=== PATIENT | male | born 1950 | race Caucasian/White ===

== ENCOUNTER 2025-01-17 14:14 | Emergency (ER) | payer OTHER, SELFPAY ==
[2025-01-17] VITALS (27 sets, daily range): BP systolic 86–114; BP diastolic 58–82; BMI 34.4
[2025-01-17 14:38] LABS: Hematocrit 48.2 % (39.0-52.0); Hemoglobin 17.0 g/dL (13.0-18.0); Mean Corp Hgb Conc. 35.3 g/dL (33.0-37.0); Mean Corpuscular Volume 93.4 fL (80.0-94.0); Nucleated Red Blood Cells % 0 % (-); Platelet Count 233 10^3/uL (130-400); Red Cell Dist. Width 14.0 % (11.5-14.5)
--- NOTE | 2025-01-17 14:41 | ED.GENMED ---
History of Present Illness
<Armand Burk PA-C - Last Filed: 01/17/25 19:11>
General
Chief Complaint: Cardiac Symptoms
Time Seen by Provider: 01/17/25 14:35
History of Present Illness
History of Present Illness:
74-year-old male with history of paroxysmal A-fib presents to the emergency department for evaluation of persistent A-fib for the past 3 days. He took an extra dose of his propafenone without alleviation of symptoms. He felt profoundly short of
breath with exertion this morning prompting him to come to the ED as he noted his heart rates were in excess of 140-150. He currently feels improved but knows that he is still in A-fib. He denies any chest pain at this point. He has been
compliant with his Eliquis
Past History
<Armand Burk PA-C - Last Filed: 01/17/25 19:11>
Past History
ED Past Medical History: Arrthythmia (Paroxysmal atrial fibrillation)
Social History
Alcohol: Daily
Review of Systems
<GRANT Hunter Last Filed: 01/17/25 19:11>
Review of Systems
Allergies reviewed?: Yes
All Other Systems: ROS reviewed and negative except as documented in HPI and ROS
Phy Exam
<GRANT Hunter Last Filed: 01/17/25 19:11>
Physical Exam
Physical Exam:
GEN: Well appearing, NAD, WDWN
HEENT: Oral mucosa moist, no scleral icterus
Cardiac: Tachycardic, irregular
Lung: No respiratory distress, no tachypnea
MSK: No gross deformity or injuries
Skin: Good color, no pallor or jaundice, no rashes
Neuro: AO x3, moves all extremities freely
Psych: Calm, cooperative
Course
<Armand Burk PA-C - Last Filed: 01/17/25 19:11>
Orders/Labs/Results
Orders:
Orders
01/17/25 14:15
Electrocardiogram (*1) Urgent
Reason for Study: Tachycardia
EKG- Treatment ONCE
01/17/25 14:32
Complete Blood Count/With Diff Urgent
Comprehensive Metabolic Panel Urgent
Magnesium Urgent
PT/INR [Prothrombin Time] Urgent
PTT Urgent
Troponin I Urgent
01/17/25 14:41
Diltiazem HCl [Cardizem] 20 mg IV NOW STA
01/17/25 14:57
0.9% Sodium Chloride 1000 ml [Nss] 1,000 ml IV BOLUS
01/17/25 15:48
Propofol [Diprivan] 20 ml .ROUTE .STK-MED
01/17/25 15:59
Electrocardiogram (*1) Urgent
Reason for Study: Atrial Fibrillation
EKG- Treatment ONCE
Abnormal Lab Results
01/17/25
14:32
WBC 11.6 H 10^3/uL
(4.8-10.8)
MCH 32.9 H pg
(27.0-31.0)
Abs Immat Gran (auto) 0.1 H 10^3/uL
(0-0.05)
Absolute Neuts (auto) 6.6 H 10^3/uL
(1.4-6.5)
Absolute Lymphs (auto) 3.6 H 10^3/uL
(1.2-3.4)
Absolute Monos (auto) 1.0 H 10^3/uL
(0.1-0.6)
Immature Gran % 0.9 H %
(0-0.5)
PT 15.3 H Sec
(11.4-14.6)
BUN 30 H mg/dl
(9-20)
Creatinine 1.4 H mg/dL
(0.7-1.3)
Glucose 129 H mg/dl
(70-99)
ALT 69 H U/L
(0-50)
01/17/25 14:32
01/17/25 14:32
Vital Signs
Initial and Last Documented VS:
Initial Vital Signs
Temp Pulse Resp BP Pulse Ox
97.4 F 155 22 99/75 96
01/17/25 14:18 01/17/25 14:18 01/17/25 14:18 01/17/25 14:18 01/17/25 14:18
Last Documented Vital Signs
Temp Pulse Resp BP Pulse Ox
98.4 F 62 20 105/66 97
01/17/25 16:27 01/17/25 17:00 01/17/25 17:00 01/17/25 16:55 01/17/25 16:55
<Lalita Haas MD - Last Filed: 01/17/25 16:07>
Orders/Labs/Results
Orders:
Orders
01/17/25 14:15
Electrocardiogram (*1) Urgent
Reason for Study: Tachycardia
EKG- Treatment ONCE
01/17/25 14:32
Complete Blood Count/With Diff Urgent
Comprehensive Metabolic Panel Urgent
Magnesium Urgent
PT/INR [Prothrombin Time] Urgent
PTT Urgent
Troponin I Urgent
01/17/25 14:41
Diltiazem HCl [Cardizem] 20 mg IV NOW STA
01/17/25 14:57
0.9% Sodium Chloride 1000 ml [Nss] 1,000 ml IV BOLUS
01/17/25 15:48
Propofol [Diprivan] 20 ml .ROUTE .STK-MED
01/17/25 15:59
Electrocardiogram (*1) Urgent
Reason for Study: Atrial Fibrillation
EKG- Treatment ONCE
Abnormal Lab Results
01/17/25
14:32
WBC 11.6 H 10^3/uL
(4.8-10.8)
MCH 32.9 H pg
(27.0-31.0)
Abs Immat Gran (auto) 0.1 H 10^3/uL
(0-0.05)
Absolute Neuts (auto) 6.6 H 10^3/uL
(1.4-6.5)
Absolute Lymphs (auto) 3.6 H 10^3/uL
(1.2-3.4)
Absolute Monos (auto) 1.0 H 10^3/uL
(0.1-0.6)
Immature Gran % 0.9 H %
(0-0.5)
PT 15.3 H Sec
(11.4-14.6)
BUN 30 H mg/dl
(9-20)
Creatinine 1.4 H mg/dL
(0.7-1.3)
Glucose 129 H mg/dl
(70-99)
ALT 69 H U/L
(0-50)
01/17/25 14:32
01/17/25 14:32
Vital Signs
Initial and Last Documented VS:
Initial Vital Signs
Temp Pulse Resp BP Pulse Ox
97.4 F 155 22 99/75 96
01/17/25 14:18 01/17/25 14:18 01/17/25 14:18 01/17/25 14:18 01/17/25 14:18
Last Documented Vital Signs
Temp Pulse Resp BP Pulse Ox
98.4 F 62 20 105/66 97
01/17/25 16:27 01/17/25 17:00 01/17/25 17:00 01/17/25 16:55 01/17/25 16:55
Procedures
<Armand Burk PA-C - Last Filed: 01/17/25 19:11>
Cardioversion
Indication:: Afib
Performed by:: Armand Burk PA-C, Lalita Haas,
Synchronized?: Yes
Energy Used: 200 joules
Number of attempts: 1
Successful?: Yes
Complications: None
ASA Risk Score: Class II
Any reaction or bad outcome to prior sedation/anesthesia?: No history of a reaction
Sedation level to be attained: moderate
Chart and allergies reviewed: Yes
Patient reassessed prior to sedation: Yes
Time out completed at (validating right patient & procedure): 15:56
History of difficult intubation: No
Airway free of obstruction: Yes
Patient has a gag reflex: Yes
Patient is able to open mouth: Yes
Patient has no dentures: Yes
Patient has no loose teeth: Yes
Medication administered by Provider during Moderate Sedation: IV Propofol (mg)
Total dose administered: 70
Time drug administered: 15:57
Start Time: 15:57
Stop Time: 16:07
<Armand Burk PA-C - Last Filed: 01/17/25 19:11>
MDM/Problems Addressed
MDM/Problems Addressed:
We achieved rate control with IV diltiazem however the patient remained in atrial flutter thus the decision was made to perform electrical cardioversion which was successful without complications. Patient will be discharged and recommended to
follow-up with his epic ambulatory analyst for further management
<Armand Burk PA-C - Last Filed: 01/17/25 19:11>
*Pulse Oximetry
SaO2: 95
Oxygen Mode of Delivery: Room air
Patient hypoxic: no
*Critical Care Note
Total Time (30-74mins, 75-104mins- exclusive of procedures): Not Applicable
ED Attending Note
<Armand Burk PA-C - Last Filed: 01/17/25 19:11>
-
Portions of this chart may have been created with voice recognition software.� Occasional wrong word or��sound alike� substitutions may have occurred due to the inherent limitations of voice recognition software.
<Lalita Haas MD - Last Filed: 01/17/25 16:07>
ED Attending Note
Patient seen and examined by attending physician: Yes
I performed the substantive portion of visit, reviewed & personally made and approve the management plan that is documented in note by myself or BRIDGER.: Yes
ED Attending Note:
Patient appears well and comfortable. Presents with A-fib with RVR. Heart sounds irregular. Patient is breathing comfortably.
Discharge Plan
Departure
Patient Disposition: Home (Routine Discharge)
Date of Disposition: 01/17/25
Time of Disposition: 16:53
Patient with high blood pressure during this ER visit?: No
Discharge Problem:
Atrial fibrillation with RVR
Instructions: Atrial fibrillation and atrial flutter - ED discharge instructions, Sedation for procedures in adults - ED discharge instructions
Prescriptions:
No Action
allopurinol 300 MG tablet
300 mg PO DAILY
coenzyme Q10 100 MG capsule
100 mg PO DAILY
lansoprazole [Prevacid] 30 MG capsule,delayed release(DR/EC)
30 mg PO DAILY
turmeric root extract 500 MG capsule
1,000 mg PO DAILY
cetirizine [Zyrtec] 10 mg Tablet
10 mg PO HS
ascorbic acid (vitamin C) [C-500] 500 mg Tablet
500 mg PO DAILY
metoprolol succinate 25 mg Tablet Extended Release 24 Hr
50 mg PO BID
magnesium 200 mg Tablet
144 mg PO DAILY
Tart Loco 15-571-83-75-20 mg Capsule
1 cap PO DAILY
cholecalciferol (vitamin D3) [Vitamin D3] 125 mcg (5,000 unit) Tablet
400 unit PO DAILY
mecobalamin (vitamin B12) 1,000 mcg Tablet,Chewable
1,000 mcg PO DAILY
zinc
30 mg PO HS
hydrochlorothiazide 12.5 mg Capsule
12.5 mg PO DAILY
Garden Veggies
1 cap PO BID
Eliquis 2.5 mg Tablet
2.5 mg PO BID
Referrals:
Lito Garibay MD [Family Provider, Family Practice]
Soren Lovell MD [Active, Cardiology]
Interventions
Interventions:
*Risk Screen - Suicide Last Done: 01/17/25 14:18
*General Assessment Last Done: 01/17/25 14:18
*Neglect/Abuse Screening Last Done: 01/17/25 14:18
*ED- Fall Risk Assessment Last Done: 01/17/25 14:37
*ED COVID-19 Vaccine History Last Done: 01/17/25 14:18
*Nursing Disposition Last Done: 01/17/25 17:20
ED- Pulmonary Assessment Last Done: 01/17/25 14:37
ED- Cardiac Assessment Last Done: 01/17/25 14:37
Discharge Date and Time
Discharge Date/Time: 01/17/25 17:21
Print Language: ARABIC
[2025-01-17 14:49] LABS: INR 1.16; PT 15.3 Sec (11.4-14.6)
[2025-01-17 14:50] LABS: APTT 33.8 Sec (23.4-35.0)
[2025-01-17] MEDS: CARDIZEM 20 MG IV (14:52)
[2025-01-17 14:54] LABS: ALT (SGPT) 69 U/L (0-50); AST (SGOT) 44 U/L (17-59); Albumin 4.8 g/dl (3.5-5.0); Alkaline Phosphatase 76 U/L (38-126); Blood Urea Nitrogen 30 mg/dl (9-20); Calcium 10.0 mg/dl (8.4-10.2); Carbon Dioxide 30 mmol/L (22-30); Chloride 104 mmol/L (98-107); Estimated Creatinine Clearance 59 ml/min; Glucose 129 mg/dl (70-99); Magnesium 2.2 mg/dl (1.6-2.3); Potassium 4.7 mmol/L (3.5-5.1); Sodium 141 mmol/L (135-145); Total Protein 7.6 g/dl (6.3-8.2); eGFR 53.40
[2025-01-17] MEDS: NSS 1000 IV (14:58)
[2025-01-17 15:04] LABS: Troponin I < 0.012 ng/ml
== END 2025-01-17 17:21 | disposition home or self-care (01) ==
LOC: EMR 14:14
PROVIDERS: EMERGENCY PHYSICIAN Emergency Medicine; FAMILY PHYSICIAN Family Medicine
DX: I48.91 Unspecified atrial fibrillation (principal); Z79.01 Long term (current) use of anticoagulants
CPT/HCPCS: 92960; 99152; 96374; 96361; 99285; 80053; 83735; 84484; 85025; 85610; 85730; 93005

== ENCOUNTER 2025-02-03 13:40 | Emergency (ER) | payer OTHER, SELFPAY ==
[2025-02-03 13:52] VITALS: BP 111/68
[2025-02-03 14:20] LABS: Hematocrit 45.2 % (39.0-52.0); Hemoglobin 16.0 g/dL (13.0-18.0); Mean Corp Hgb Conc. 35.4 g/dL (33.0-37.0); Mean Corpuscular Volume 91.3 fL (80.0-94.0); Nucleated Red Blood Cells % 0 % (-); Platelet Count 179 10^3/uL (130-400); Red Cell Dist. Width 13.0 % (11.5-14.5)
[2025-02-03 14:36] LABS: ALT (SGPT) 58 U/L (0-50); AST (SGOT) 34 U/L (17-59); Albumin 4.6 g/dl (3.5-5.0); Alkaline Phosphatase 69 U/L (38-126); Blood Urea Nitrogen 24 mg/dl (9-20); Calcium 9.9 mg/dl (8.4-10.2); Carbon Dioxide 23 mmol/L (22-30); Chloride 108 mmol/L (98-107); Glucose 121 mg/dl (70-99); Potassium 4.0 mmol/L (3.5-5.1); Sodium 140 mmol/L (135-145); Total Protein 7.2 g/dl (6.3-8.2); eGFR > 60.00
== END 2025-02-09 12:06 | disposition left against medical advice (07) ==
LOC: EMR 13:40
PROVIDERS: Emergency Medicine
DX: I48.91 Unspecified atrial fibrillation (principal); Z79.01 Long term (current) use of anticoagulants; Z53.21 Procedure and treatment not carried out due to patient leaving prior to being seen by health care provider
CPT/HCPCS: 80053; 85025; 93005

== ENCOUNTER 2025-02-15 08:15 | Day surgery (SDC) | payer OTHER, SELFPAY ==
[2025-02-15] VITALS (17 sets, daily range): BP systolic 75–158; BP diastolic 48–100; BMI 33.0
[2025-02-15 11:34] LABS: ACT-LR - POC 340 Seconds (116-155)
--- NOTE | 2025-02-15 12:33 | ITS.CL.ABL ---
Control System Manager - Ablation
Ablation
Procedure Report:
ELECTROPHYSIOLOGIC STUDY AND POSSIBLE ABLATION
DATE: February 15, 2025
Primary Care Provider: Dr. Lito Art
INDICATION:
Symptomatic Atrial Fibrillation.
Persistent
HISTORY: See H and P.
Symptomatic AF, poorly controlled with attempted medical therapy
He is a 73 year old male with PMH of non-ischemic cardiomyopathy EF ~50-55%, mild AR, paroxysmal A fib and atrial flutter s/p ablation in 07/2016 in [place], statin intolerance, mild non-obstructive CAD, palpitations, frequent PVC's .
Mr Mcelroy� has a complex arrhythmia history.
July 2016 A-fib/a flutter PVI in [place]
February 2019 PVC ablation at [place] (marked reduction in PVC burden and improved LVEF s/p abl)
January 2020 PVI [place]
September 2020 repeat PVI [place]
September 2022 �reisolation�of pulmonary veins,�posterior wall ablation,�left atrial flutter��ablation
January 2023 he underwent implant of Linq
He has since demonstrated recurrences of atrial fibrillation and atrial tachycardia, symptomatic and documented on his loop recorder.
HAS-BLED: 1
Age
CHADSVASc: 2
HTN
Age
PRESENTING RHYTHM: Atrial tachycardia
HISTORY: See H and P.
Symptomatic AF, poorly controlled with attempted medical therapy.
ANTIARRHYTHMIC DRUG: Propafenone
ANTICOAGULATION: Eliquis 5 mg twice daily
'TIME-OUT': called and confirmed.
SEDATION/ANESTHESIA: provided via the anesthesia department using general anesthesia.
PROCEDURE:
Ultrasound Guidance with real-time visualization of needle insertion and vessel patency performed by me for femoral venous Vascular Access.
Under real-time US guidance, the needle was advanced with negative pressure into the vein. The needle was seen entering the vessel lumen with a good return of dark red flow, the syringe was removed, non-pulsatile, dark red blood low was noted and
the wire was passed without difficulty, then the needle was removed. US confirmed the wire was in the vein, not going into an artery,
Images were taken and saved for the patient's permanent record. Imaging findings typical femoral venous anatomy. Direct visualization of needle puncture into the femoral vein was observed and recorded.
A decapolar CS catheter was placed within the CS for mapping and pacing.
The intracardiac ultrasound catheter was positioned in the RA for continuous intracardiac ultrasound imaging.
Heparin bolus and infusion to target ACT at 300 -350 seconds was administered. Transseptal puncture was performed. This entailed advancing a sheath with dilator into the superior vena cava and withdrawing both (monitoring intracardiac ultrasound,
fluoroscopy and tip pressure) with the tip oriented toward the atrial septum. The fossa ovalis was engaged (indicated by sudden displacement of the sheath tip as well as tenting of the fossa seen on intracardiac ultrasound).
Transseptal puncture was performed. Left atrial catheter position was confirmed by echocardiographic imaging, pressure monitoring (LA mean pressure 11 mm Hg) and fluoroscopy. The sheath was advanced over the dilator and positioned in the left
atrium.
The Auxmoneya multipolar mapping/ablation Sphere-9 catheter was positioned through the transseptal sheath for high density mapping.
Geometry and voltage mapping was performed using the Auxmoneya mapping system for three-dimensional electroanatomical mapping.
Catheter positioning was guided and confirmed using both I.C.E. and fluoroscopy.
Patient presents in an atrial tachycardia with atrial cycle length of 350 ms
Activation sequence on the decapolar coronary sinus catheter is proximal to distal.
A combination of entrainment pacing from the lateral wall of the right atrium, the coronary sinus catheter and the cavotricuspid isthmus as well as three-dimensional electroanatomical activation mapping using Affera defines counterclockwise
cavotricuspid isthmus dependent atrial flutter.
Using a combination of radiofrequency energy closure to the tricuspid valve annulus and pulsed electric field energy closure to the inferior vena cava, the sphere 9 catheter was used to create a line of ablation from the tricuspid valve annulus down
to the inferior vena cava at approximately 6:00 and a 30 degree AKIRA projection. During ablation the tachycardia slowed and then terminated.
At the completion of ablation activation mapping as well as differential pacing find bidirectional block across the ablation line.
Next attention was turned to left atrial mapping
High density electroanatomical three-dimensional mapping demonstrated four PVs: LSPV, LIPV, RSPV, RIPV.
There is reconnection of the left superior pulmonary vein towards its superior posterior quadrant.
This was addressed with delivery of pulsed electric field ablation via the sphere 9 catheter, reisolating the left superior pulmonary vein
Ablation strategy included PVI as well as mapping for extra PV contributors to atrial fibrillation which would also be targeted if present.
After accomplishing pulmonary venous isolation, mapping identified additional areas likely to be extra PV contributors to atrial fibrillation. These areas demonstrated patchy low voltage as well as complex fractionated electrograms. These areas can
be sites for the formation of rotors which can drive and maintain atrial fibrillation. These areas are known to be significant contributors to initiation and perpetuation of atrial fibrillation.
Additional energy applications/additional ablation sets targeted extra PV contributors to atrial fibrillation.
Targets for additional PFA ablation included the posterior wall of the left atrium which is not completely electrically isolated. There are areas of reconnection along the upper posterior wall of the left atrium centrally as well as located towards
the antrum of the right superior pulmonary vein
These areas at the LA posterior wall targeted with pulsed electric field energy isolating the posterior wall of the left atrium
Additional targets of extra PV contributors to atrial fibrillation were addressed:
The ridge of tissue between the left atrial appendage and the left sided pulmonary veins (Ligament of Hima )
These areas were ablated using pulsed electric field energy eliminating the extra PV contributors to atrial fibrillation.
Post ablation mapping finds entrance and exit block at each of the pulmonary veins (LSPV, LIPV, RSPV, RIPV) as well as electrical isolation of the the LA posterior wall and the Ligament of Marshal rendering the sites no longer able to contribute to
atrial fibrillation.
Programmed electrostimulation including burst atrial pacing as well the delivery of decremental extrastimuli down to atrial effective refractory period and no sustained arrhythmias could be induced.
The sphere 9 catheter was then withdrawn from the left atrium and the right atrium was again mapped to assess for durability of the previously placed CTI line. Activation mapping along with differential pacing continue to show bidirectional block
at the CTI line
I.C.E. :
Pre-Ablation Post-Ablation
LVEF: 55% 55%
WMA: None none
Pericardial effusion: None none
LA Pressure 11 mmHg
COMPLICATIONS:
[place]
SUMMARY:
- Mapping and ablation to isolate the PVs resulting in electrical isolation of the pulmonary veins
- Additional AF ablation sets X 2 after PVI (LA posterior wall and ligament of Hima) resulting in elimination of the targeted extra PV contributors to atrial fibrillation
- Mapping and ablation of second tachycardia (typical counterclockwise CTI dependent right atrial flutter)rendering it noninducible with programmed electrical stimulation
- 3-D Electroanatomical Mapping
- Intracardiac Ultrasound
- Ultrasound guidance for vascular access
Post ablation, I discussed today's findings and results with the patient's , Shannon
RECOMMENDATIONS:
- Observe in monitored bed.
- Maintain oral anticoagulation.
- Stop propafenone
- Office visit is scheduled with me on June 09, 2025
Copy to: Dr. Lito Art
--- NOTE | 2025-02-15 14:10 | W.PN.UPDATE ---
Update Note
Progress Note Update
Pt seen post PFA. Right groin site with vascade closure, no ht/bleeding. Post EKG NSR 70s w/ant-lat TWI as before, no acute changes. Resume eliuqis tonight. Discontinue propafenone at this time, continue other meds as before. Followup with
[facility] as scheduled. Home today if groin site/tele remain stable.
== END 2025-02-15 15:05 | disposition home or self-care (01) ==
LOC: CATH 08:15
PROVIDERS: ATTENDING PHYSICIAN Internal Medicine Cardiovascular Disease; FAMILY PHYSICIAN Family Medicine
DX: I48.19 Other persistent atrial fibrillation (principal); I48.92 Unspecified atrial flutter; Z88.1 Allergy status to other antibiotic agents; Z88.6 Allergy status to analgesic agent; Z88.0 Allergy status to penicillin; Z79.01 Long term (current) use of anticoagulants; Z96.89 Presence of other specified functional implants; I10 Essential (primary) hypertension; E78.5 Hyperlipidemia, unspecified; I42.8 Other cardiomyopathies
CPT/HCPCS: C1894; C1766; C1892; C1733; 85347; 86850; 86900; 86901; 93005; 93655; 93656; 93657; C1730; C1760